=== PATIENT | male | born 1980 | race Caucasian/White ===

== ENCOUNTER 2018-10-01 20:53 | Emergency (ER) | payer OTHER ==
[~2018-10-01] VITALS: Ht 185.4 cm; Wt 90.7 kg
[~2018-10-01 20:53] MED LIST: AMOX500 PO; CYCL10 PO; HYDACE10B PO; HYDACE5 PO; NAPR500 PO; NAPR550 PO; OXYACE5T PO; PROM25 PO
[2018-10-01 21:21] LABS: BASOPHILS ABSOLUTE AUTO 0.02 K/mm3 (0.00-0.23); BASOPHILS PERCENT AUTO 0 % (0-2); EOSINOPHILS ABSOLUTE AUTO 0.25 K/mm3 (0.00-0.68); EOSINOPHILS PERCENT AUTO 5 % (0-6); Hemoglobin 13.5 g/dL (13.5-17.5); IMMATURE GRAN ABSOLUTE AUTO 0.01 K/mm3 (0.00-0.10); IMMATURE GRAN PERCENT AUTO 0 % (0-1); LYMPHOCYTES ABSOLUTE AUTO 1.89 K/mm3 (0.84-5.20); LYMPHOCYTES PERCENT AUTO 38 % (21-46); MONOCYTES PERCENT AUTO 10 % (4-13); Mean Corpuscular HGB 32.1 pg (26.0-34.0); Mean Corpuscular HGB Conc 32.9 g/dL (31.5-36.5); Mean Corpuscular Volume 98 fL (80-100); Mean Platelet Volume 9.3 fL (9.1-12.4); NEUTROPHILS ABSOLUTE AUTO 2.37 K/mm3 (1.96-9.15); NEUTROPHILS PERCENT AUTO 47 % (41-73); Platelet Count 258 K/mm3 (150-400); RDW Coefficient Variation 12.8 % (11.7-14.2); RDW Standard Deviation 45.8 fL (35.1-46.3); White Blood Cell Count 5.04 K/mm3 (4.00-11.30)
[2018-10-01 21:42] LABS: Troponin I <0.015 ng/mL (0.000-0.040)
[2018-10-01 21:57] LABS: Alanine Aminotransfer (ALT/SGP 31 U/L (12-78); Albumin, Blood 3.4 g/dL (3.4-5.0); Albumin/Globulin Ratio 1.2 (0.8-1.8); Alk Phos 68 U/L (50-136); Anion Gap 8 mmol/L (6-16); Aspartate Aminotrans (AST/SGOT 21 U/L (12-37); Bilirubin, Total <0.1 mg/dL (0.1-1.0); Blood Urea Nitrogen 15 mg/dL (8-24); Bun/Creatinine Ratio 17.4 (12.0-20.0); CO2, Blood 24 mmol/L (21-32); Chloride, Blood 110 mmol/L (98-108); Creatinine, Blood 0.86 mg/dL (0.60-1.20); Globulin, Blood 2.8 g/dL (2.2-4.0); Glomerular Filtration Rate >60 (60-); Glucose, Blood 116 mg/dL (70-99); Potassium, Blood 3.8 mmol/L (3.5-5.5); Sodium, Blood 142 mmol/L (136-145); Total Protein, Blood 6.2 g/dL (6.4-8.2)
[2018-10-01 23:24] LABS: Source, Urine Clean Catch
[2018-10-01 23:47] LABS: Bilirubin, Urine Neg (Neg); Blood, Urine Neg (Neg); Glucose Qualitative, Urine Neg (Neg); Ketones, Urine 1+ (Neg); Leukocyte Esterase, Urine Neg (Neg); Nitrite, Urine Neg (Neg); Protein, Urine 1+ (Neg); Specific Gravity, Urine 1.025 (1.003-1.022); Urobilinogen, Urine 1+ (Normal)
[2018-10-02 00:13] LABS: Appearance, Urine Clear (Clear); Color, Urine Yellow (P-Yellow)
[2018-10-02 00:20] LABS: Acetaminophen, Random 9.7 ug/mL (10.0-30.0); Salicylate 1.7 mg/dL (2.8-20.0)
[2018-10-02 00:29] LABS: U Amphetamine Screen DETECTED; U Methamphetamine Screen Not Detected
[2018-10-02 00:30] LABS: U Barbituate Screen Not Detected; U Benzodiazapine Screen DETECTED; U Buprenorphine Screen Not Detected; U Cannabinoids Screen DETECTED; U Cocaine Screen Not Detected; U Methadone Screen Not Detected; U Opiates Screen Not Detected; U Oxycodone Screen DETECTED; U Phencyclidine Screen Not Detected; U Propoxyphene Screen Not Detected
== END 2018-10-02 00:52 | disposition home or self-care (01) ==
LOC: ER 20:53
PROVIDERS: Emergency Medicine
DX: R51 Headache (principal); I10 Essential (primary) hypertension; F19.20 Other psychoactive substance dependence, uncomplicated; F11.20 Opioid dependence, uncomplicated; F17.210 Nicotine dependence, cigarettes, uncomplicated
CPT/HCPCS: 36415; 70450; 80053; 82140; 84484; 85025; 93005; 93010; 96361; 96374; 96375; 99284-25; G0480; J0360; J1200; J1885; J2765; J7030

== ENCOUNTER 2019-05-16 13:45 | Inpatient (IN) | payer OTHER ==
[~2019-05-16] VITALS: Ht 185.4 cm; Wt 91.4 kg
[2019-05-16] MEDS ORDERED: Prinivil10 MG PO (14:00)
[2019-05-16 14:22] LABS: BASOPHILS ABSOLUTE AUTO 0.05 K/mm3 (0.00-0.23); BASOPHILS PERCENT AUTO 0 % (0-2); EOSINOPHILS PERCENT AUTO 0 % (0-6); Hematocrit 41.9 % (37.0-53.0); Hemoglobin 14.1 g/dL (13.5-17.5); IMMATURE GRAN ABSOLUTE AUTO 0.08 K/mm3 (0.00-0.10); IMMATURE GRAN PERCENT AUTO 0 % (0-1); LYMPHOCYTES ABSOLUTE AUTO 1.31 K/mm3 (0.84-5.20); LYMPHOCYTES PERCENT AUTO 6 % (21-46); MONOCYTES ABSOLUTE AUTO 1.72 K/mm3 (0.16-1.47); MONOCYTES PERCENT AUTO 8 % (4-13); Mean Corpuscular HGB 31.3 pg (26.0-34.0); Mean Corpuscular HGB Conc 33.7 g/dL (31.5-36.5); Mean Corpuscular Volume 93 fL (80-100); Mean Platelet Volume 9.6 fL (9.1-12.4); NEUTROPHILS ABSOLUTE AUTO 18.48 K/mm3 (1.96-9.15); NEUTROPHILS PERCENT AUTO 85 % (41-73); Platelet Count 257 K/mm3 (150-400); RDW Coefficient Variation 13.3 % (11.7-14.2); RDW Standard Deviation 45.2 fL (35.1-46.3); Red Blood Cell Count 4.51 M/mm3 (4.30-5.90); White Blood Cell Count 21.64 K/mm3 (4.00-11.30)
[2019-05-16 14:44] LABS: Alanine Aminotransfer (ALT/SGP 26 U/L (12-78); Albumin, Blood 3.8 g/dL (3.4-5.0); Alk Phos 75 U/L (50-136); Anion Gap 5 mmol/L (6-16); Aspartate Aminotrans (AST/SGOT 11 U/L (12-37); Bilirubin, Total 0.6 mg/dL (0.1-1.0); Blood Urea Nitrogen 12 mg/dL (8-24); Bun/Creatinine Ratio 15.2 (12.0-20.0); CO2, Blood 28 mmol/L (21-32); Calcium, Blood 8.8 mg/dL (8.5-10.1); Chloride, Blood 103 mmol/L (98-108); Creatinine, Blood 0.79 mg/dL (0.60-1.20); Globulin, Blood 3.8 g/dL (2.2-4.0); Glomerular Filtration Rate >60 (60-); Glucose, Blood 94 mg/dL (70-99); Sodium, Blood 136 mmol/L (136-145); Total Protein, Blood 7.6 g/dL (6.4-8.2)
--- NOTE | 2019-05-16 16:45 | NUR ---
ASSUMPTION OF CARE Assumed care of pt with Maryann BELTRÁN upon arrival to unit at 1631 from ED. Pt arrived to unit accompanied by Bon BELTRÁN. Prior to pt arrival to unit, Dr Rodriguez notified this RN that he wants IV decadron and vancomycin given stat. Also notified that Dr Holland stated plan to see patient at 1700. Inquired if provider wanted zigzag topstitcher consult. Dr Hickey consulted by Dr Rodriguez. Upon pt arrival to unit, Dr Hickey at bedside. No new orders from provider. Pt transferred from ED [facility] to ICU bed independently. SpO2 90% or greater RA. Sinus rhythm per monitor. Pt hypertensive. States that he was unable to take BP medications because he cannot swallow. Suction at bedside. Pt producing copious amounts of tenacious, rothman secretions. This RN placed call to Dr Rodriguez to notify that pt received 10 mg decadron in ED. Decadron, Diphenhydramine, and Pepcid order clarified. Pt's spouse, Oksana, and mother, Sima, at bedside to answer admit questions.
--- NOTE | 2019-05-16 17:15 | NUR ---
UPDATE Call placed to Dr Holland to update on pt. Provider states he will be at bedside shortly. Dr Rodriguez notified that Dr Holland not yet in to see pt. Provider updated of lung sounds and high BP. New orders provided.
--- NOTE | 2019-05-16 18:33 | NUR ---
SUMMARY Dr Holland at bedside at 1735 to perform laryngoscopy via right nare. Provider stated no threat to pt's airway. Stated plan to continue IV antibiotics and IV decadron. Suggested IV fluids and pain control. Call placed to Dr Rodriguez at 1810 to notify of provider's recommendations. New orders provided. Pt remains on room air. No events per monitor worker. Several family members at bedside. Family educated on importance of suctioning secretions from pt's mouth. Family verbalizes understanding.
--- NOTE | 2019-05-16 19:40 | NUR ---
ASSUMED CARE BEDSIDE REPORT RECIEVED. PT IS SITTIN UP IN BED WITH EYES CLOSED. PT AROUSES TO VERBAL STIMULI AND IS ALERT AND ORIENTED. PT WITH MULTIPLE FAMILY MEMBERS AT BEDSIDE. PT COMPLAINS OF PAIN TO THROAT. PT WITH COPIOUS ORAL SECRETIONS THAT PT IS SUCTIONING WITH YANKOUR. PT UNABLE TO SWALLOW. VITAL SIGNS STABLE. NS INFUSING AT 150 ML/HR. WILL CONTINUE TO MONITOR.
[2019-05-17 03:15] LABS: BASOPHILS ABSOLUTE AUTO 0.03 K/mm3 (0.00-0.23); BASOPHILS PERCENT AUTO 0 % (0-2); EOSINOPHILS PERCENT AUTO 0 % (0-6); Hematocrit 41.5 % (37.0-53.0); Hemoglobin 13.9 g/dL (13.5-17.5); IMMATURE GRAN ABSOLUTE AUTO 0.12 K/mm3 (0.00-0.10); IMMATURE GRAN PERCENT AUTO 1 % (0-1); LYMPHOCYTES ABSOLUTE AUTO 0.85 K/mm3 (0.84-5.20); LYMPHOCYTES PERCENT AUTO 4 % (21-46); MONOCYTES ABSOLUTE AUTO 0.58 K/mm3 (0.16-1.47); MONOCYTES PERCENT AUTO 3 % (4-13); Mean Corpuscular HGB 31.4 pg (26.0-34.0); Mean Corpuscular HGB Conc 33.5 g/dL (31.5-36.5); Mean Corpuscular Volume 94 fL (80-100); Mean Platelet Volume 9.9 fL (9.1-12.4); NEUTROPHILS ABSOLUTE AUTO 19.86 K/mm3 (1.96-9.15); NEUTROPHILS PERCENT AUTO 93 % (41-73); Platelet Count 243 K/mm3 (150-400); RDW Coefficient Variation 13.3 % (11.7-14.2); RDW Standard Deviation 46.2 fL (35.1-46.3); Red Blood Cell Count 4.43 M/mm3 (4.30-5.90); White Blood Cell Count 21.44 K/mm3 (4.00-11.30)
[2019-05-17 03:32] LABS: Anion Gap 6 mmol/L (6-16); Blood Urea Nitrogen 14 mg/dL (8-24); Bun/Creatinine Ratio 25.9 (12.0-20.0); CO2, Blood 25 mmol/L (21-32); Calcium, Blood 8.5 mg/dL (8.5-10.1); Chloride, Blood 107 mmol/L (98-108); Creatinine, Blood 0.54 mg/dL (0.60-1.20); Glomerular Filtration Rate >60 (60-); Glucose, Blood 123 mg/dL (70-99); Potassium, Blood 4.7 mmol/L (3.5-5.5); Sodium, Blood 138 mmol/L (136-145)
--- NOTE | 2019-05-17 05:41 | NUR ---
SHIFT SUMMARY NO ACUTE CHANGES THIS SHIFT. PT HAS SLEPT THROUGHOUT MOST OF THE SHIFT. PT ABLE TO SUCTION ORAL SECRETIONS INDEPENDENTLY. SECRETIONS DECREASING. VITAL SIGNS HAVE REMAINED STABLE. PT ON ROOM AIR. NS INFUSING AT 150 ML/HR. FAMILY MEMBERS REMAIN AT BEDSIDE. WILL CONTINUE TO MONITOR AND REPORT OFF TO ONCOMING RN.
--- NOTE | 2019-05-17 07:28 | NUR ---
0700-ASSUMED CARE OF PT. PT IS ALERT AND ORIENTED. PT STATED HE IS FEELING BETTER AND ABLE TO SWALLOW. NOTED PT'S UVULA STILL RED AND SWOLLEN, WHITE PATCHES NOTED ON THE TOP OF THE TONGUE CLOSE TO THE UVULA. PT HAS SOME GARBLED SPEECH BUT CAN BE UNDERSTOOD.
--- NOTE | 2019-05-17 07:50 | NUR ---
PT SEEN BY DR. CHINCHILLA, UPDATED HIM OF PT'S STATUS.
[2019-05-17] MEDS ORDERED: LOSA25 PO (08:19)
--- NOTE | 2019-05-17 10:30 | NUR ---
GAVE PT SOME POPSICLES, PT IS ABLE TO TOLERATE THE POPSICLES. PT STATES HIS SWALLOWING IS SLOWLY IMPROVING.
--- NOTE | 2019-05-17 12:10 | NUR ---
PT SEEN BY DR. BENITEZ, UPDATED HIM OF PT'S STATUS.
--- NOTE | 2019-05-17 12:31 | NUR ---
PT WAS ABLE TO TOLERATE MECHANICAL SOFT WITHOUT ANY SWALLOWING PROBLEMS. ORDERED FOR REGULAR DIET. PT STATES "I'M HUNGRY." UVULA SWELLING IMPROVING.
--- NOTE | 2019-05-17 14:28 | NUR ---
PT WAS ABLE TO TOLERATE REGULAR DIET, NO DIFFICULTY SWALLOWING WAS NOTED. PT HAS EXPRESSED HE WANTS TO WALK AROUND AND WALK TO THE [facility]. CALLED DR. CHINCHILLA REGARDING PT'S REQUESTS. HE ORDERED TO DC TELEMETRY AND ALLOWED PT TO WALK AROUND THE HOSPITAL.
--- NOTE | 2019-05-17 14:40 | NUR ---
PT IS STEADY ON HIS GAIT. ALL DRESSED UP TO WALK AROUND THE HOSPITAL. HE WANTED TO GO TO THE COURTYARD. INFORMED HIM THAT HE HAS TO COME BACK AN HOUR LATER FOR HIS ANTIBIOTICS.
--- NOTE | 2019-05-17 15:41 | NUR ---
PT IS STILL OUT OF THE ROOM SINCE 1440 THIS AFTERNOON.
--- NOTE | 2019-05-17 16:06 | NUR ---
PT BACK IN ROOM.
--- NOTE | 2019-05-17 16:30 | NUR ---
REPORT GIVEN TO LEIGH ANN ORTIZ. PT WILL BE TRANSFERED TO ROOM PCU 16.
--- NOTE | 2019-05-17 16:54 | NUR ---
PT WAS TRANSFERED TO ROOM [facility] @ [id number].
--- NOTE | 2019-05-17 17:38 | NUR ---
Received the patient from ICU, ambulatory, to room PCU 16 about an hour ago. He states that he is very hungry. Double portioned dinner arrived for him. States that he is "back to normal" with his swallowing and voice.
--- NOTE | 2019-05-17 20:37 | NUR ---
ASSUMED CARE OF PT AT 1915. PT AT THAT TIME WAS OFF THE UNIT, AND HAS SINCE RETURNED. INSTRUCTED PT THAT IF HE IS TO LEAVE UNIT THAT HE SHOULD INFORM STAFF THAT HE IS LEAVING, AND THAT HE SHOULD BE BACK IN REASONABLE TIME WELL REMAINING ON CAMPUS. PT VERBALIZES UNDERSTANDING, AND IS IN AGREEMENT. PT STATES THAT HIS THROAT IS FEELING MUCH BETTER, AND THAT HE DID NOT FIND ANY RESTRICTIONS WHEN HE HAD HIS REGULAR MEAL. NO SWALLOW DIFFICULTIES. PT INDEPENDENT IN ROOM. WILL REVIEW CHART AND PLAN OF CARE FOR THIS PT.
--- NOTE | 2019-05-17 22:39 | NUR ---
PT CURRENTLY RESTING IN BED IN NO APPARENT DISTRESS. PT'S SON ROOMS IN THIS NIGHT. WILL CONTINUE TO MONITOR.
--- NOTE | 2019-05-18 03:59 | NUR ---
PT UP TO BATHROOM INDEPENDENTLY. VOIDS Q.S. NO COMPLAINTS WHILE OUT OF BED. PT STATES THAT HIS THROAT IS FEELING IMPROVED MORESO THAN THE PREVIOUS ASSESSMENT. WILL CONTINUE TO MONITOR.
--- NOTE | 2019-05-18 06:01 | NUR ---
PT HAS NO COMPLAINTS THIS NIGHT. HAS BEEN INDEPENDENT IN ROOM. NO DIFFICULTY WITH SWALLOW. HAS MAINTAINED OPEN AIRWAY WITHOUT RESTRICTION. STATES HE FEELS THAT HE IS BACK TO HIS BASELINE. TOLERATED ANTIBIOTIC THERAPY WELL WITHOUT S/S ADVERSE REACTIONS. WILL CONTINUE TO MONITOR PT, AND WILL REPORT OFF TO ONCOMING RN.
[2019-05-18] MEDS ORDERED: AMOCLA875 PO (11:00)
[2019-05-18] MEDS ORDERED: Prednisone10 MG PO (11:00)
== END 2019-05-18 12:09 | disposition home or self-care (01) | DRG 872 ==
LOC: ER 13:45 → ICUW 13:46 → ICUE 13:46 → PCU 05-17 12:33 → ICUE 05-17 12:33 → PCU 05-17 17:32
PROVIDERS: Physician Assistant; ADMIT Hospitalist
DX: A40.0 Sepsis due to streptococcus, group A (principal); J36 Peritonsillar abscess; G43.909 Migraine, unspecified, not intractable, without status migrainosus; I10 Essential (primary) hypertension; T78.3XXA Angioneurotic edema, initial encounter
CPT/HCPCS: 36415; 70491; 71045; 80048; 80053; 80202; 82947; 83605; 85025; 87040; 87070; 87077; 87081; 87147; 87186; 87205; 87430; 93005; 93010; 94640; 96361; 96365-59; 96366; 96367; 96372; 96375; 96375-59; 96376; 99284-25; G0378; J1100; J1200; J1650; J3010; J3370; J7030; J7050; Q9967

== ENCOUNTER 2023-10-09 06:20 | Emergency (ER) | payer OTHER ==
[~2023-10-09] VITALS: Ht 185.4 cm; Wt 100.7 kg
[~2023-10-09 06:20] MED LIST changes: +AMOCLA875 PO; +LOSA25 PO; +Prednisone10 MG PO; +Prinivil10 MG PO
[2023-10-09 06:43] VITALS: BP 213/128
[2023-10-09] MEDS ORDERED: ERYT1OIN LEFTEYE (10:45)
== END 2023-10-09 10:52 | disposition home or self-care (01) ==
LOC: ER 06:20
DX: S63.277A Dislocation of unspecified interphalangeal joint of left little finger, initial encounter (principal); S05.02XA Injury of conjunctiva and corneal abrasion without foreign body, left eye, initial encounter; I10 Essential (primary) hypertension; F17.210 Nicotine dependence, cigarettes, uncomplicated; Y04.2XXA Assault by strike against or bumped into by another person, initial encounter; Z79.899 Other long term (current) drug therapy; Y92.59 Other trade areas as the place of occurrence of the external cause; Y99.0 Civilian activity done for income or pay
CPT/HCPCS: 73130; 99283-25; A9270; A9270-GY

== ENCOUNTER 2023-10-16 01:13 | Emergency (ER) | payer OTHER ==
[~2023-10-16] VITALS: Ht 185.4 cm; Wt 99.8 kg
[~2023-10-16 01:13] MED LIST changes: +ERYT1OIN LEFTEYE
[2023-10-16 01:44] VITALS: BP 220/132
== END 2023-10-16 03:47 | disposition home or self-care (01) ==
LOC: ER 01:13
DX: S05.02XA Injury of conjunctiva and corneal abrasion without foreign body, left eye, initial encounter (principal); I10 Essential (primary) hypertension; F17.210 Nicotine dependence, cigarettes, uncomplicated; X58.XXXA Exposure to other specified factors, initial encounter; Y92.59 Other trade areas as the place of occurrence of the external cause; Y99.0 Civilian activity done for income or pay; Z79.52 Long term (current) use of systemic steroids
CPT/HCPCS: 99283; A9270; A9270-GY

== ENCOUNTER 2024-09-06 06:11 | Emergency (ER) | payer OTHER ==
[~2024-09-06] VITALS: Ht 185.4 cm; Wt 99.8 kg
[2024-09-06] MEDS ORDERED: Ondansetron HCl 2 MG / ML 2ML Vial IV ONE (06:30)
[2024-09-06 06:35] LABS: BASOPHILS ABSOLUTE AUTO 0.05 K/mm3 (0.00-0.23); BASOPHILS PERCENT AUTO 0 % (0-2); EOSINOPHILS ABSOLUTE AUTO 1.05 K/mm3 (0.00-0.68); EOSINOPHILS PERCENT AUTO 8 % (0-6); Hematocrit 45.4 % (37.0-53.0); Hemoglobin 15.4 g/dL (13.5-17.5); IMMATURE GRAN ABSOLUTE AUTO 0.06 K/mm3 (0.00-0.10); IMMATURE GRAN PERCENT AUTO 1 % (0-1); LYMPHOCYTES ABSOLUTE AUTO 1.55 K/mm3 (0.84-5.20); LYMPHOCYTES PERCENT AUTO 12 % (21-46); MONOCYTES ABSOLUTE AUTO 0.74 K/mm3 (0.16-1.47); MONOCYTES PERCENT AUTO 6 % (4-13); Mean Corpuscular HGB Conc 33.9 g/dL (31.5-36.5); Mean Corpuscular Volume 92 fL (80-100); Mean Platelet Volume 10.1 fL (9.1-12.4); NEUTROPHILS ABSOLUTE AUTO 9.42 K/mm3 (1.96-9.15); NEUTROPHILS PERCENT AUTO 73 % (41-73); Platelet Count 289 K/mm3 (150-400); RDW Coefficient Variation 13.2 % (11.7-14.2); RDW Standard Deviation 44.5 fL (35.1-46.3); Red Blood Cell Count 4.96 M/mm3 (4.30-5.90); White Blood Cell Count 12.87 K/mm3 (4.00-11.30)
[2024-09-06] MEDS ORDERED: Lisinopril 20 MG Tab PO ONE (06:50)
[2024-09-06] MEDS ORDERED: HYDROmorphone HCl/Pf 1MG SYR IV ONE ×2 (06:50→08:10)
[2024-09-06] MEDS ORDERED: NS 1,000 ML IV SCH (06:50)
[2024-09-06] MEDS ORDERED: Ketorolac Tromethamine 30mg Vial IV ONE (06:50)
[2024-09-06 06:51] LABS: Albumin, Blood 4.3 g/dL (3.4-5.0); Albumin/Globulin Ratio 1.3 (0.8-1.8); Bilirubin, Total 0.4 mg/dL (0.1-1.0); Bun/Creatinine Ratio 15.7 (12.0-20.0); Calcium, Blood 8.9 mg/dL (8.5-10.1); Creatinine, Blood 0.96 mg/dL (0.60-1.20); Globulin, Blood 3.2 g/dL (2.2-4.0); Potassium, Blood 3.9 mmol/L (3.5-5.5); Total Protein, Blood 7.5 g/dL (6.4-8.2)
[2024-09-06 08:15] VITALS: BP 214/149
[2024-09-06 08:27] LABS: Source, Urine Clean Catch
[2024-09-06 08:33] LABS: Appearance, Urine Clear (Clear); Bilirubin, Urine Neg (Neg); Blood, Urine 2+ (Neg); Color, Urine Yellow (P-Yellow); Glucose Qualitative, Urine Neg (Neg); Ketones, Urine Neg (Neg); Leukocyte Esterase, Urine Neg (Neg); Nitrite, Urine Neg (Neg); Protein, Urine 1+ (Neg); Specific Gravity, Urine 1.015 (1.003-1.022); Urobilinogen, Urine NORM (Normal)
[2024-09-06 08:40] LABS: Bacteria Rare /hpf; Red Blood Cells, Urine 0-2 /hpf (0-2); Squamous Epithelial Cells Mod /hpf (Few); White Blood Cells, Urine 0-2 /hpf (0-5)
[2024-09-06] MEDS ORDERED: OXYC5 PO (09:04)
[2024-09-06] MEDS ORDERED: Zestril40 MG PO (09:04)
[2024-09-06] MEDS ORDERED: TAMS.4ER PO (09:04)
[2024-09-06] MEDS ORDERED: Tamsulosin HCl 0.4 MG Cap PO ONE (09:05)
[2024-09-06] MEDS ORDERED: RX Prepack 6 Tabs Oxycodone 5mg UD ONE (09:05)
== END 2024-09-06 09:45 | disposition home or self-care (01) ==
LOC: ER 06:11
PROVIDERS: Emergency Medicine
DX: N13.2 Hydronephrosis with renal and ureteral calculous obstruction (principal); I10 Essential (primary) hypertension; G43.909 Migraine, unspecified, not intractable, without status migrainosus; F17.200 Nicotine dependence, unspecified, uncomplicated
CPT/HCPCS: 74177; 80053; 81001; 83690; 85025; 96361; 96374-59; 96375; 96376; 99284-25; A9270; J1171; J1885; J2405; J7030; Q9967

== ENCOUNTER → 2025-08-07 | Outpatient (CLI) | payer OTHER ==
[~2025-08-07] MED LIST changes: +OXYC5 PO; +TAMS.4ER PO; +Zestril40 MG PO
[2025-08-07 16:29] LABS: BASOPHILS ABSOLUTE AUTO 0.05 K/mm3 (0.00-0.23); BASOPHILS PERCENT AUTO 1 % (0-2); EOSINOPHILS ABSOLUTE AUTO 0.27 K/mm3 (0.00-0.68); EOSINOPHILS PERCENT AUTO 4 % (0-6); Hematocrit 43.4 % (37.0-53.0); Hemoglobin 14.4 g/dL (13.5-17.5); IMMATURE GRAN ABSOLUTE AUTO 0.01 K/mm3 (0.00-0.10); IMMATURE GRAN PERCENT AUTO 0 % (0-1); LYMPHOCYTES ABSOLUTE AUTO 2.10 K/mm3 (0.84-5.20); LYMPHOCYTES PERCENT AUTO 34 % (21-46); MONOCYTES ABSOLUTE AUTO 0.46 K/mm3 (0.16-1.47); MONOCYTES PERCENT AUTO 8 % (4-13); Mean Corpuscular HGB Conc 33.2 g/dL (31.5-36.5); Mean Corpuscular Volume 94 fL (80-100); NEUTROPHILS ABSOLUTE AUTO 3.24 K/mm3 (1.96-9.15); NEUTROPHILS PERCENT AUTO 53 % (41-73); NRBC ABSOLUTE 0.00 K/mm3 (0.00-0.02); NRBC Auto 0.0 /100 WBC (0.0-0.2); Platelet Count 289 K/mm3 (150-400); RDW Coefficient Variation 13.8 % (11.7-14.2); RDW Standard Deviation 47.4 fL (35.1-46.3)
[2025-08-07 21:26] LABS: Alanine Aminotransfer (ALT/SGP 34 U/L (12-78); Albumin, Blood 4.1 g/dL (3.4-5.0); Albumin/Globulin Ratio 1.5 (0.8-1.8); Anion Gap 8 mmol/L (3-11); Aspartate Aminotrans (AST/SGOT 16 U/L (12-37); Bilirubin, Total 0.3 mg/dL (0.1-1.0); Blood Urea Nitrogen 19 mg/dL (8-24); CHOL/HDL RATIO 3.6; CO2, Blood 27 mmol/L (21-32); Calcium, Blood 8.9 mg/dL (8.5-10.1); Chloride, Blood 108 mmol/L (98-108); Cholesterol 153 mg/dL (50-200); Creatinine, Blood 0.88 mg/dL (0.60-1.20); Globulin, Blood 2.8 g/dL (2.2-4.0); Glucose, Blood 128 mg/dL (70-99); HDL Cholesterol 43 mg/dL (>39); LDL/HDL RATIO 1.8; Low Density Lipoprotein Chol 77 mg/dL (0-110); Potassium, Blood 3.5 mmol/L (3.5-5.5); Sodium, Blood 139 mmol/L (136-145); Total Protein, Blood 6.9 g/dL (6.4-8.2); Triglycerides 166 mg/dL (30-160); Very Low Density Lipoprot Chol 33 mg/dL (6-32)
== END | disposition home or self-care (01) ==
LOC: LAB SHORT 08:50 → LAB 08:50
PROVIDERS: Nurse Practitioner Family
DX: Z13.6 Encounter for screening for cardiovascular disorders (principal); I10 Essential (primary) hypertension
CPT/HCPCS: 80053; 80061; 85025